=== PATIENT | male | born 1970 | race Caucasian/White ===

== ENCOUNTER 2017-04-02 10:57 | Inpatient (IN) | payer OTHER, SELFPAY ==
[~2017-04-02] VITALS: Ht 170.2 cm; Wt 78.0 kg
[2017-04-02] MEDS ORDERED: SODIUM CHLORIDE 0.9% 1,000 ML IV ONE ×2 (11:34→14:20)
[2017-04-02] MEDS ORDERED: ONDANSETRON 2MG/ML, 2ML IVPush ONE (12:00)
[2017-04-02] MEDS ORDERED: SODIUM CHLORIDE 0.9% 1,000ML IVBOLUS ONE ×3 (12:00→15:30)
[2017-04-02] MEDS ORDERED: SODIUM CHLORIDE FLUSH 10ML SYR IVF ONE (12:00)
[2017-04-02] MEDS ORDERED: PLEASE ENTER ALLERGIES MC SCH (12:00)
[2017-04-02] MEDS ORDERED: HYDROmorphone 1 MG/ML, 1ML IVPush PRN ×2 (12:00→14:30)
[2017-04-02] MEDS ORDERED: PIPERACILLIN/TAZO/PMX 3.375GM 50 ML IVPB ONE (12:00)
[2017-04-02] MEDS ORDERED: PIPERACILLIN/TAZO/PMX 3.375GM 50 ML ONE (12:01)
[2017-04-02] MEDS ORDERED: ONDANSETRON 2MG/ML, 2ML ONE (12:01)
[2017-04-02] MEDS ORDERED: HYDROmorphone 2 MG/ML, 1ML ONE (12:01)
[2017-04-02 12:19] LABS: MEAN CORPUSCULAR HEMOGLOBIN 31.5 pg (27.5-34.5); MEAN CORPUSCULAR HGB CONC 33.9 g/dL (33.2-36.2); MEAN CORPUSCULAR VOLUME 92.7 fL (81-97); MEAN PLATELET VOLUME 7.6 fL (7.4-10.4); PLATELET COUNT 234 x10^3/uL (130-400); RED BLOOD COUNT 3.95 x10^6/uL (4.38-5.82); RED CELL DISTRIBUTION WIDTH 14.4 % (9.4-14.8)
[2017-04-02 12:32] LABS: ALANINE AMINOTRANSFERASE 93 U/L (12-78); ALBUMIN 2.7 g/dL (3.4-5.0); ANION GAP 9 mmol/L (5-15); CHLORIDE 99 mmol/L (98-107); CREATININE 0.96 mg/dL (0.7-1.3)
[2017-04-02 12:34] LABS: ALKALINE PHOSPHATASE 224 U/L (45-117); BILIRUBIN,TOTAL 0.8 mg/dL (0.2-1.0)
[2017-04-02 12:39] LABS: MD YES
[2017-04-02 12:42] LABS: BAND#(MANUAL) 1.77 x10^3/uL; BANDS%(MANUAL) 8 % (0-7); EOS#(MANUAL) 0.22 x10^3/uL (0.0-0.4); EOS% (MANUAL) 1 % (1-7); LYMPH#(MANUAL) 0.44 x10^3/uL (1-3.4); LYMPHS% (MANUAL) 2 % (22-44); MONOS#(MANUAL) 1.11 x10^3/uL (0.3-2.7); MONOS% (MANUAL) 5 % (2-9); SEG#(MANUAL) 18.56 x10^3/uL (1.8-6.8); SEGS% (MANUAL) 84 % (42-75)
[2017-04-02 12:43] LABS: <PLATELET ESTIMATE> ADEQUATE; <PLT MORPHOLOGY> NORMAL PLT MORPH; <RBC MORPHOLOGY> NORMAL
[2017-04-02] MEDS ORDERED: OMNIPAQUE 350 MG/ML, 100ML BOTTLE ONE (13:19)
[2017-04-02 14:29] LABS: MICROSCOPIC INDICATED
[2017-04-02] MEDS ORDERED: SODIUM CHLORIDE FLUSH 10ML SYR IVF PRN (14:30)
[2017-04-02] MEDS ORDERED: ONDANSETRON 2MG/ML, 2ML IVPush PRN ×2 (14:30→15:00)
[2017-04-02 14:41] LABS: CULTURE INDICATED? NO
[2017-04-02] MEDS ORDERED: ACETAMINOPHEN 325 MG TABLET PO PRN (15:00)
[2017-04-02] MEDS ORDERED: LABETALOL 5MG/ML, 20ML IVPush PRN (15:00)
[2017-04-02] MEDS ORDERED: VANCOMYCIN PER PHARMACY MC PRN (15:00)
[2017-04-02] MEDS ORDERED: DOCUSATE 100 MG CAPSULE PO PRN (15:00)
[2017-04-02] MEDS ORDERED: ENALAPRILAT 1.25 MG/ML, 2ML IVPush PRN (15:00)
[2017-04-02] MEDS ORDERED: BISACODYL 10 MG SUPP PR PRN (15:00)
[2017-04-02] MEDS ORDERED: POLYETHYLENE GLYCOL 17 GM PACKET PO PRN (15:00)
[2017-04-02 15:13] VITALS: BP 114/71
[2017-04-02] MEDS ORDERED: PHARMACOKINETIC CONSULTATION MC ONE (15:30)
[2017-04-02] MEDS ORDERED: PHARMACOKINETIC MONITORING MC PRN (15:30)
[2017-04-02] MEDS: HYDROmorphone 2 MG/ML, 1ML IVPush PRN (16:30)
[2017-04-02] MEDS: AMPICILLIN/SULBACTAM 3 GM in SODIUM CHLORIDE 0.9% 100 ML IV SCH ×2 (16:34→22:34)
[2017-04-02] MEDS: ENOXAPARIN 40 MG/0.4 ML SQ SCH (16:43)
[2017-04-02] MEDS: SODIUM CHLORIDE 0.9% 1,000 ML IV SCH ×2 (16:44→22:34)
[2017-04-02] MEDS: VANCOMYCIN 1,500 MG in SODIUM CHLORIDE 0.9% 250 ML IV SCH (18:04)
[2017-04-02 19:16] VITALS: BP 108/66
[2017-04-02] MEDS: HYDROcodone/APAP 5/325 TABLET PO PRN (20:49)
[2017-04-02] MEDS: TEMAZEPAM 15 MG CAPSULE PO PRN (22:42)
[2017-04-03] MEDS: AMPICILLIN/SULBACTAM 3 GM in SODIUM CHLORIDE 0.9% 100 ML IV SCH ×4 (04:57→23:18)
[2017-04-03 04:59] VITALS: BP 108/48
[2017-04-03] MEDS: HYDROcodone/APAP 5/325 TABLET PO PRN ×5 (05:11→23:23)
[2017-04-03 06:48] VITALS: BP 112/68
[2017-04-03 08:52] LABS: MEAN CORPUSCULAR HEMOGLOBIN 31.3 pg (27.5-34.5); MEAN CORPUSCULAR VOLUME 92.2 fL (81-97); MEAN PLATELET VOLUME 7.4 fL (7.4-10.4); PLATELET COUNT 198 x10^3/uL (130-400); RED BLOOD COUNT 3.56 x10^6/uL (4.38-5.82); RED CELL DISTRIBUTION WIDTH 14.6 % (9.4-14.8)
[2017-04-03 08:57] LABS: ALANINE AMINOTRANSFERASE 86 U/L (12-78); ALBUMIN 2.2 g/dL (3.4-5.0); ANION GAP 9 mmol/L (5-15); CHLORIDE 102 mmol/L (98-107); CREATININE 0.67 mg/dL (0.7-1.3)
[2017-04-03 08:59] LABS: ALKALINE PHOSPHATASE 183 U/L (45-117); BILIRUBIN,TOTAL 0.6 mg/dL (0.2-1.0); TOTAL PROTEIN 6.8 g/dL (6.4-8.2)
[2017-04-03 09:46] LABS: HCT (SEDRATE) 32.8 % (39.2-51.8)
[2017-04-03 09:49] LABS: MD YES
[2017-04-03 09:50] LABS: BAND#(MANUAL) 0.99 x10^3/uL; BANDS%(MANUAL) 7 % (0-7); LYMPH#(MANUAL) 1.27 x10^3/uL (1-3.4); LYMPHS% (MANUAL) 9 % (22-44); MONOS#(MANUAL) 1.27 x10^3/uL (0.3-2.7); MONOS% (MANUAL) 9 % (2-9); SEG#(MANUAL) 10.58 x10^3/uL (1.8-6.8); SEGS% (MANUAL) 75 % (42-75)
[2017-04-03 09:51] LABS: <PLATELET ESTIMATE> ADEQUATE; <PLT MORPHOLOGY> NORMAL PLT MORPH; <RBC MORPHOLOGY> NORMAL
[2017-04-03] MEDS: SODIUM CHLORIDE 0.9% 1,000 ML IV SCH ×2 (10:34→23:18)
[2017-04-03] MEDS: VANCOMYCIN 1,500 MG in SODIUM CHLORIDE 0.9% 250 ML IV SCH (11:57)
[2017-04-03 14:21] VITALS: BP 113/75
[2017-04-03] MEDS: ENOXAPARIN 40 MG/0.4 ML SQ SCH (16:32)
[2017-04-03] MEDS: POTASSIUM CHLORIDE 20 MEQ TAB.ER.PRT PO SCH (16:33)
[2017-04-03 19:08] VITALS: BP 125/78
[2017-04-03] MEDS: TEMAZEPAM 15 MG CAPSULE PO PRN (23:18)
[2017-04-04 02:44] VITALS: BP 111/68
[2017-04-04] MEDS: AMPICILLIN/SULBACTAM 3 GM in SODIUM CHLORIDE 0.9% 100 ML IV SCH ×4 (05:16→23:33)
[2017-04-04] MEDS: HYDROcodone/APAP 5/325 TABLET PO PRN ×3 (05:22→23:33)
[2017-04-04 05:38] LABS: BASOPHILS # (AUTO) 0.12 x10^3/uL (0-0.1); BASOPHILS % (AUTO) 1 % (0-1); EOSINOPHILS % (AUTO) 1 % (1-7); LYMPHOCYTES # (AUTO) 1.18 x10^3/uL (1-3.4); LYMPHOCYTES % (AUTO) 8 % (22-44); MD NO; MEAN CORPUSCULAR HEMOGLOBIN 31.5 pg (27.5-34.5); MEAN CORPUSCULAR HGB CONC 33.8 g/dL (33.2-36.2); MEAN CORPUSCULAR VOLUME 93.3 fL (81-97); MEAN PLATELET VOLUME 7.2 fL (7.4-10.4); MONOCYTES # (AUTO) 1.07 x10^3/uL (0.2-0.8); MONOCYTES % (AUTO) 7 % (2-9); NEUTROPHILS # (AUTO) 12.38 x10^3/uL (1.8-6.8); NEUTROPHILS % (AUTO) 83 % (42-75); PLATELET COUNT 285 x10^3/uL (130-400); RED BLOOD COUNT 3.69 x10^6/uL (4.38-5.82); RED CELL DISTRIBUTION WIDTH 14.4 % (9.4-14.8)
[2017-04-04 05:59] LABS: CALCIUM 8.4 mg/dL (8.5-10.1)
[2017-04-04] MEDS: VANCOMYCIN 1,500 MG in SODIUM CHLORIDE 0.9% 250 ML IV SCH (06:18)
[2017-04-04 06:33] LABS: ANION GAP 8 mmol/L (5-15); CHLORIDE 103 mmol/L (98-107); CREATININE 0.71 mg/dL (0.7-1.3); VANCOMYCIN,TROUGH 4.1 mcg/mL (5.0-10.0)
[2017-04-04 07:27] VITALS: BP 135/81
[2017-04-04] MEDS: POTASSIUM CHLORIDE 20 MEQ TAB.ER.PRT PO SCH (08:07)
[2017-04-04 12:25] VITALS: BP 123/74
[2017-04-04] MEDS: SODIUM CHLORIDE 0.9% 1,000 ML IV SCH ×2 (13:34→23:33)
[2017-04-04] MEDS: ENOXAPARIN 40 MG/0.4 ML SQ SCH (16:52)
[2017-04-04] MEDS: HYDROmorphone 2 MG/ML, 1ML IVPush PRN ×2 (16:53→20:35)
[2017-04-04] MEDS: VANCOMYCIN 1,400 MG in SODIUM CHLORIDE 0.9% 250 ML IV SCH (18:22)
[2017-04-04 19:15] VITALS: BP 155/88
[2017-04-05] MEDS: HYDROmorphone 2 MG/ML, 1ML IVPush PRN ×4 (04:07→21:36)
[2017-04-05 04:28] VITALS: BP 144/76
[2017-04-05] MEDS: AMPICILLIN/SULBACTAM 3 GM in SODIUM CHLORIDE 0.9% 100 ML IV SCH ×4 (04:54→23:11)
[2017-04-05 05:08] LABS: CLOSTRIDIUM DIFFICILE ANTIGEN NEGATIVE; CLOSTRIDIUM DIFFICILE TOXIN NEGATIVE (Negative)
[2017-04-05] MEDS: HYDROcodone/APAP 5/325 TABLET PO PRN ×3 (06:16→23:11)
[2017-04-05] MEDS: VANCOMYCIN 1,400 MG in SODIUM CHLORIDE 0.9% 250 ML IV SCH ×2 (06:17→19:24)
[2017-04-05 07:58] VITALS: BP 136/78
[2017-04-05 08:54] LABS: ALANINE AMINOTRANSFERASE 71 U/L (12-78); ALBUMIN 1.9 g/dL (3.4-5.0); ANION GAP 12 mmol/L (5-15); CALCIUM 7.5 mg/dL (8.5-10.1); CHLORIDE 103 mmol/L (98-107); CREATININE 0.58 mg/dL (0.7-1.3)
[2017-04-05 08:56] LABS: ALKALINE PHOSPHATASE 228 U/L (45-117); BILIRUBIN,TOTAL 0.6 mg/dL (0.2-1.0); TOTAL PROTEIN 6.6 g/dL (6.4-8.2)
[2017-04-05 09:18] LABS: MEAN CORPUSCULAR HEMOGLOBIN 31.6 pg (27.5-34.5); MEAN CORPUSCULAR HGB CONC 34.1 g/dL (33.2-36.2); MEAN CORPUSCULAR VOLUME 92.8 fL (81-97); MEAN PLATELET VOLUME 7.5 fL (7.4-10.4); PLATELET COUNT 280 x10^3/uL (130-400); RED BLOOD COUNT 3.38 x10^6/uL (4.38-5.82); RED CELL DISTRIBUTION WIDTH 15.1 % (9.4-14.8)
[2017-04-05] MEDS: SODIUM CHLORIDE 0.9% 1,000 ML IV SCH ×2 (09:36→15:30)
[2017-04-05 09:56] LABS: MD YES
[2017-04-05 09:59] LABS: BAND#(MANUAL) 0.56 x10^3/uL; BANDS%(MANUAL) 4 % (0-7); LYMPH#(MANUAL) 1.13 x10^3/uL (1-3.4); LYMPHS% (MANUAL) 8 % (22-44); MONOS#(MANUAL) 0.85 x10^3/uL (0.3-2.7); MONOS% (MANUAL) 6 % (2-9); SEG#(MANUAL) 11.56 x10^3/uL (1.8-6.8); SEGS% (MANUAL) 82 % (42-75)
[2017-04-05 10:00] LABS: <PLATELET ESTIMATE> ADEQUATE; ANISOCYTOSIS 1+
[2017-04-05 10:01] LABS: <PLT MORPHOLOGY> NORMAL PLT MORPH
[2017-04-05 14:23] VITALS: BP_SYST 121; BP_SYST 130; BP_DIAS 74; BP_DIAS 76
[2017-04-05] MEDS ORDERED: BUPIVACAINE/PF 0.5% ONE (15:07)
[2017-04-05] MEDS ORDERED: EPINEPHRINE 1 MG/ML, 1ML ONE (15:07)
[2017-04-05] MEDS ORDERED: FENTANYL PF 250 MCG/5ML ONE (15:12)
[2017-04-05] MEDS ORDERED: MIDAZOLAM 1 MG/ML, 2ML ONE (15:12)
[2017-04-05] MEDS ORDERED: PROPOFOL 10 MG/ML, 20ML ONE (15:14)
[2017-04-05] MEDS ORDERED: SUCCINYLCHOLINE 20 MG/ML, 10ML ONE (15:14)
[2017-04-05] MEDS ORDERED: ONDANSETRON 2MG/ML, 2ML ONE (15:14)
[2017-04-05] MEDS ORDERED: ACETAMINOPHEN 325 MG TABLET PO PRN (16:00)
[2017-04-05] MEDS ORDERED: LABETALOL 5MG/ML, 20ML IV PRN (16:00)
[2017-04-05] MEDS ORDERED: ONDANSETRON 2MG/ML, 2ML IVPush PRN (16:00)
[2017-04-05] MEDS ORDERED: HYDROmorphone 1 MG/ML, 1ML IV PRN (16:00)
[2017-04-05] MEDS ORDERED: FENTANYL PF 100 MCG/2ML IV PRN (16:00)
[2017-04-05] MEDS ORDERED: PROMETHAZINE 25 MG/ML, 1ML IV PRN (16:00)
[2017-04-05] MEDS ORDERED: ALBUTEROL SULFATE 2.5 MG/3 ML NPPB PRN (16:00)
[2017-04-05] MEDS ORDERED: OXYcodone 5 MG/5 ML ORAL.SOL UDC PO PRN (16:00)
[2017-04-05] MEDS ORDERED: hydrALAzine 20 MG/ML, 1ML IV PRN (16:00)
[2017-04-05] MEDS ORDERED: MEPERIDINE/PF 25MG/0.5ML IVPush PRN (16:00)
[2017-04-05] MEDS ORDERED: MEPERIDINE/PF 50 MG/ML ONE (16:14)
[2017-04-05] MEDS: ENOXAPARIN 40 MG/0.4 ML SQ SCH (16:30)
[2017-04-05] MEDS ORDERED: FENTANYL PF 100 MCG/2ML ONE (17:04)
[2017-04-05] MEDS ORDERED: OXYcodone 5 MG/5 ML ORAL.SOL UDC ONE (17:04)
[2017-04-05 21:15] VITALS: BP 147/84
[2017-04-06 00:02] VITALS: BP 124/67
[2017-04-06] MEDS: SODIUM CHLORIDE 0.9% 1,000 ML IV SCH ×3 (02:05→17:16)
[2017-04-06] MEDS: MORPHINE SULFATE 4 MG/ML, 1ML IV PRN ×2 (02:05→05:09)
[2017-04-06] MEDS: AMPICILLIN/SULBACTAM 3 GM in SODIUM CHLORIDE 0.9% 100 ML IV SCH ×4 (05:03→23:09)
[2017-04-06 05:34] LABS: MEAN CORPUSCULAR HEMOGLOBIN 32.2 pg (27.5-34.5); MEAN CORPUSCULAR HGB CONC 34.5 g/dL (33.2-36.2); MEAN CORPUSCULAR VOLUME 93.3 fL (81-97); MEAN PLATELET VOLUME 7.1 fL (7.4-10.4); PLATELET COUNT 317 x10^3/uL (130-400); RED BLOOD COUNT 3.02 x10^6/uL (4.38-5.82); RED CELL DISTRIBUTION WIDTH 15.1 % (9.4-14.8)
[2017-04-06 05:40] LABS: ALBUMIN 1.7 g/dL (3.4-5.0); ANION GAP 6 mmol/L (5-15); CALCIUM 7.4 mg/dL (8.5-10.1); CHLORIDE 105 mmol/L (98-107)
[2017-04-06 05:44] LABS: ALANINE AMINOTRANSFERASE 76 U/L (12-78); ALKALINE PHOSPHATASE 201 U/L (45-117); BILIRUBIN,TOTAL 0.4 mg/dL (0.2-1.0); CREATININE 0.58 mg/dL (0.7-1.3); TOTAL PROTEIN 6.1 g/dL (6.4-8.2)
[2017-04-06 06:07] LABS: BASOPHILS # (AUTO) 0.02 x10^3/uL (0-0.1); BASOPHILS % (AUTO) 0 % (0-1); EOSINOPHILS # (AUTO) 0.09 x10^3/uL (0-0.4); EOSINOPHILS % (AUTO) 1 % (1-7); LYMPHOCYTES # (AUTO) 1.26 x10^3/uL (1-3.4); LYMPHOCYTES % (AUTO) 10 % (22-44); MD SCAN; MONOCYTES # (AUTO) 0.51 x10^3/uL (0.2-0.8); MONOCYTES % (AUTO) 4 % (2-9); NEUTROPHILS # (AUTO) 10.93 x10^3/uL (1.8-6.8); NEUTROPHILS % (AUTO) 85 % (42-75)
[2017-04-06] MEDS: OXYcodone/APAP 5/325MG TABLET PO PRN ×3 (06:44→15:56)
[2017-04-06] MEDS: VANCOMYCIN 1,400 MG in SODIUM CHLORIDE 0.9% 250 ML IV SCH ×2 (08:05→20:13)
[2017-04-06 08:29] VITALS: BP 134/74
[2017-04-06 13:38] VITALS: BP 121/75
[2017-04-06] MEDS: ENOXAPARIN 40 MG/0.4 ML SQ SCH (17:02)
[2017-04-06 18:53] VITALS: BP 132/83
[2017-04-06] MEDS: HYDROmorphone 2 MG/ML, 1ML IVPush PRN (20:13)
[2017-04-06] MEDS: TEMAZEPAM 15 MG CAPSULE PO PRN (23:12)
[2017-04-07 00:16] VITALS: BP 149/83
[2017-04-07] MEDS: SODIUM CHLORIDE 0.9% 1,000 ML IV SCH ×2 (03:58→15:00)
[2017-04-07] MEDS: OXYcodone/APAP 5/325MG TABLET PO PRN ×5 (04:03→21:19)
[2017-04-07 05:27] LABS: BASOPHILS # (AUTO) 0.02 x10^3/uL (0-0.1); BASOPHILS % (AUTO) 0 % (0-1); EOSINOPHILS % (AUTO) 2 % (1-7); LYMPHOCYTES # (AUTO) 1.85 x10^3/uL (1-3.4); LYMPHOCYTES % (AUTO) 16 % (22-44); MD NO; MEAN CORPUSCULAR HEMOGLOBIN 31.6 pg (27.5-34.5); MEAN PLATELET VOLUME 7.1 fL (7.4-10.4); MONOCYTES # (AUTO) 0.79 x10^3/uL (0.2-0.8); MONOCYTES % (AUTO) 7 % (2-9); NEUTROPHILS # (AUTO) 8.74 x10^3/uL (1.8-6.8); NEUTROPHILS % (AUTO) 75 % (42-75); PLATELET COUNT 358 x10^3/uL (130-400); RED BLOOD COUNT 3.11 x10^6/uL (4.38-5.82)
[2017-04-07] MEDS: AMPICILLIN/SULBACTAM 3 GM in SODIUM CHLORIDE 0.9% 100 ML IV SCH ×2 (05:36→11:10)
[2017-04-07 07:17] VITALS: BP 158/83
[2017-04-07] MEDS: VANCOMYCIN 1,400 MG in SODIUM CHLORIDE 0.9% 250 ML IV SCH (08:02)
[2017-04-07 13:51] VITALS: BP 157/79
[2017-04-07] MEDS: LACTOBACILLUS CHEW TABLET PO SCH ×2 (16:50→21:13)
[2017-04-07] MEDS: AMOXICILLIN/CLAV 875-125MG TABLET PO SCH ×2 (16:50→21:13)
[2017-04-07] MEDS: ENOXAPARIN 40 MG/0.4 ML SQ SCH (16:51)
[2017-04-07 18:49] VITALS: BP_SYST 167; BP_SYST 174; BP_DIAS 94; BP_DIAS 95
[2017-04-07] MEDS: TEMAZEPAM 15 MG CAPSULE PO PRN (21:19)
[2017-04-08 03:18] VITALS: BP 156/97
[2017-04-08] MEDS: HYDROcodone/APAP 5/325 TABLET PO PRN (03:33)
[2017-04-08 08:08] VITALS: BP 139/82
[2017-04-08 08:42] LABS: BASOPHILS # (AUTO) 0.06 x10^3/uL (0-0.1); BASOPHILS % (AUTO) 1 % (0-1); EOSINOPHILS % (AUTO) 2 % (1-7); LYMPHOCYTES # (AUTO) 1.95 x10^3/uL (1-3.4); LYMPHOCYTES % (AUTO) 22 % (22-44); MD NO; MEAN CORPUSCULAR HEMOGLOBIN 31.7 pg (27.5-34.5); MEAN CORPUSCULAR HGB CONC 34.3 g/dL (33.2-36.2); MEAN CORPUSCULAR VOLUME 92.4 fL (81-97); MEAN PLATELET VOLUME 6.7 fL (7.4-10.4); MONOCYTES # (AUTO) 0.47 x10^3/uL (0.2-0.8); MONOCYTES % (AUTO) 5 % (2-9); NEUTROPHILS # (AUTO) 6.43 x10^3/uL (1.8-6.8); NEUTROPHILS % (AUTO) 71 % (42-75); PLATELET COUNT 398 x10^3/uL (130-400); RED BLOOD COUNT 3.24 x10^6/uL (4.38-5.82); RED CELL DISTRIBUTION WIDTH 14.5 % (9.4-14.8)
[2017-04-08] MEDS: OXYcodone/APAP 5/325MG TABLET PO PRN ×3 (08:54→19:58)
[2017-04-08] MEDS ORDERED: FLUCONAZOLE 200 MG TABLET PO SCH (09:00)
[2017-04-08 09:56] LABS: ALANINE AMINOTRANSFERASE 46 U/L (12-78); ALBUMIN 1.9 g/dL (3.4-5.0); ANION GAP 6 mmol/L (5-15); CALCIUM 7.6 mg/dL (8.5-10.1); CHLORIDE 108 mmol/L (98-107); CREATININE 0.63 mg/dL (0.7-1.3)
[2017-04-08 09:58] LABS: ALKALINE PHOSPHATASE 187 U/L (45-117); BILIRUBIN,TOTAL 0.2 mg/dL (0.2-1.0); TOTAL PROTEIN 6.6 g/dL (6.4-8.2)
[2017-04-08] MEDS ORDERED: HYDROcodone/APAP 5/325 TABLET PO PRN (11:00)
[2017-04-08] MEDS: LACTOBACILLUS CHEW TABLET PO SCH ×3 (11:03→19:58)
[2017-04-08] MEDS: DOXYCYCLINE 100MG TABLET PO SCH ×2 (11:03→19:58)
[2017-04-08] MEDS: AMOXICILLIN/CLAV 875-125MG TABLET PO SCH ×2 (11:04→19:58)
[2017-04-08 13:31] VITALS: BP 151/75
[2017-04-08] MEDS: ENOXAPARIN 40 MG/0.4 ML SQ SCH (16:50)
[2017-04-08 19:09] VITALS: BP 137/71
[2017-04-09] MEDS: OXYcodone/APAP 5/325MG TABLET PO PRN ×4 (00:11→20:58)
[2017-04-09] MEDS: TEMAZEPAM 15 MG CAPSULE PO PRN ×2 (00:11→20:59)
[2017-04-09 00:18] VITALS: BP 155/79
[2017-04-09 06:44] VITALS: BP 149/83
[2017-04-09] MEDS ORDERED: POTASSIUM CHLORIDE 40 MEQ in SODIUM CHLORIDE 0.9% 500 ML IV ONE (07:30)
[2017-04-09] MEDS ORDERED: FLUCONAZOLE 200 MG TABLET PO ONE (09:00)
[2017-04-09] MEDS: AMOXICILLIN/CLAV 875-125MG TABLET PO SCH ×2 (09:05→20:59)
[2017-04-09] MEDS: LACTOBACILLUS CHEW TABLET PO SCH ×3 (09:05→20:59)
[2017-04-09] MEDS: DOXYCYCLINE 100MG TABLET PO SCH ×2 (09:06→20:59)
[2017-04-09] MEDS ORDERED: PROMETHAZINE 25 MG/ML, 1ML IM ONE (10:00)
[2017-04-09] MEDS ORDERED: KETOROLAC 30 MG/1 ML IVPush ONE (10:00)
[2017-04-09 13:00] VITALS: BP 146/81
[2017-04-09] MEDS: ENOXAPARIN 40 MG/0.4 ML SQ SCH (17:00)
[2017-04-09 19:24] VITALS: BP 154/88
[2017-04-10] MEDS: OXYcodone/APAP 5/325MG TABLET PO PRN ×2 (02:06→06:18)
[2017-04-10 02:21] VITALS: BP 159/84
[2017-04-10 07:29] VITALS: BP 136/76
[2017-04-10] MEDS: DOXYCYCLINE 100MG TABLET PO SCH (08:26)
[2017-04-10] MEDS: AMOXICILLIN/CLAV 875-125MG TABLET PO SCH (08:26)
[2017-04-10] MEDS: LACTOBACILLUS CHEW TABLET PO SCH (08:26)
[2017-04-10 10:43] LABS: BASOPHILS # (AUTO) 0.17 x10^3/uL (0-0.1); BASOPHILS % (AUTO) 2 % (0-1); EOSINOPHILS # (AUTO) 0.29 x10^3/uL (0-0.4); EOSINOPHILS % (AUTO) 3 % (1-7); LYMPHOCYTES # (AUTO) 1.81 x10^3/uL (1-3.4); LYMPHOCYTES % (AUTO) 18 % (22-44); MD NO; MEAN CORPUSCULAR HEMOGLOBIN 31.3 pg (27.5-34.5); MEAN CORPUSCULAR HGB CONC 33.6 g/dL (33.2-36.2); MEAN CORPUSCULAR VOLUME 92.9 fL (81-97); MEAN PLATELET VOLUME 6.3 fL (7.4-10.4); MONOCYTES # (AUTO) 0.55 x10^3/uL (0.2-0.8); MONOCYTES % (AUTO) 6 % (2-9); NEUTROPHILS # (AUTO) 7.13 x10^3/uL (1.8-6.8); NEUTROPHILS % (AUTO) 72 % (42-75); PLATELET COUNT 447 x10^3/uL (130-400); RED BLOOD COUNT 3.64 x10^6/uL (4.38-5.82); RED CELL DISTRIBUTION WIDTH 14.9 % (9.4-14.8)
[2017-04-10 10:52] LABS: ANION GAP 7 mmol/L (5-15); CHLORIDE 107 mmol/L (98-107); CREATININE 0.67 mg/dL (0.7-1.3)
[2017-04-10] MEDS ORDERED: KETOROLAC 30 MG/1 ML IM/IV SCH (11:00)
[2017-04-10] MEDS ORDERED: PROMETHAZINE 25 MG/ML, 1ML IM ONE (11:00)
[2017-04-10] MEDS ORDERED: AMOX1TAB12 PO (11:04)
[2017-04-10] MEDS ORDERED: ACID1TAB7 PO (11:04)
[2017-04-10] MEDS ORDERED: DOXY100T PO (11:04)
[2017-04-10] MEDS ORDERED: IBUP200T49 PO (11:06)
[2017-04-10] MEDS ORDERED: POTASSIUM CHLORIDE 20 MEQ TAB.ER.PRT ONE (11:22)
[2017-04-10] MEDS ORDERED: POTASSIUM CHLORIDE 20 MEQ TAB.ER.PRT PO SCH (17:00)
== END 2017-04-10 13:05 | disposition home or self-care (01) | DRG 853 ==
LOC: ED 12:34 → EDIP 14:20 → 3NE 15:03 → DCLOUNGE 04-10 12:52
PROVIDERS: ADMIT Hospitalist; ATTEND Hospitalist
PROC: 0J9B0ZZ Drainage of Perineum Subcutaneous Tissue and Fascia, Open Approach (ICD-10-PCS; principal; 2017-04-05 15:00)
DX: A41.9 Sepsis, unspecified organism (principal); E43 Unspecified severe protein-calorie malnutrition; J18.9 Pneumonia, unspecified organism; E87.1 Hypo-osmolality and hyponatremia; K61.3 Ischiorectal abscess; L03.317 Cellulitis of buttock; D64.9 Anemia, unspecified; Z68.26 Body mass index [BMI] 26.0-26.9, adult; E87.6 Hypokalemia; I10 Essential (primary) hypertension; K76.0 Fatty (change of) liver, not elsewhere classified; N20.0 Calculus of kidney; Z79.899 Other long term (current) drug therapy; Z82.49 Family history of ischemic heart disease and other diseases of the circulatory system; Z87.442 Personal history of urinary calculi
CPT/HCPCS: 36415; 71045; 74177; 80048; 80053; 80202; 81001; 83605; 83735; 84145; 85025; 85651; 87040; 87070; 87075; 87106; 87205; 87324; 96365; 96375; J0171; J0295; J1170; J1650; J1885; J2250; J2405; J2543; J2550; J2704; J3010; J3370; J3480; J3490; Q9967; J0330; J7030; J7040; J7050

== ENCOUNTER → 2019-10-03 | Outpatient (CLI) | payer MEDICAID ==
[~2019-10-03] MED LIST: ACET-1600 PO; ACID1TAB7 PO; AMOX1TAB12 PO; CETI10CA PO; DIPH25CA61 PO; DOXY100T PO; FLUO40CA2 PO; IBUP200T49 PO; OMEP20TA62 PO
[2019-10-03 14:43] LABS: BASOPHILS # (AUTO) 0.05 x10^3/uL (0-0.1); BASOPHILS % (AUTO) 1 % (0-1); EOSINOPHILS # (AUTO) 0.14 x10^3/uL (0-0.4); EOSINOPHILS % (AUTO) 2 % (1-7); LYMPHOCYTES # (AUTO) 1.67 x10^3/uL (1-3.4); LYMPHOCYTES % (AUTO) 24 % (22-44); MD NO; MEAN CORPUSCULAR HEMOGLOBIN 31.8 pg (27.5-34.5); MEAN CORPUSCULAR HGB CONC 33.8 g/dL (33.2-36.2); MEAN CORPUSCULAR VOLUME 94.1 fL (81-97); MEAN PLATELET VOLUME 7.5 fL (7.4-10.4); MONOCYTES # (AUTO) 0.48 x10^3/uL (0.2-0.8); MONOCYTES % (AUTO) 7 % (2-9); NEUTROPHILS # (AUTO) 4.55 x10^3/uL (1.8-6.8); NEUTROPHILS % (AUTO) 66 % (42-75); PLATELET COUNT 222 x10^3/uL (130-400); RED CELL DISTRIBUTION WIDTH 14.2 % (9.4-14.8)
[2019-10-03 14:49] LABS: INTERNATIONAL NORMALIZED RATIO 0.9 (0.93-1.1); PROTHROMBIN TIME 9.5 Seconds (9.6-11.5)
[2019-10-03 14:50] LABS: CALCIUM 8.9 mg/dL (8.5-10.1); CREATININE 0.86 mg/dL (0.7-1.3)
[2019-10-03 15:00] LABS: MICROSCOPIC AUTO
[2019-10-03 15:28] LABS: ANION GAP 5 mmol/L (5-15); CHLORIDE 106 mmol/L (98-107)
== END | disposition home or self-care (01) ==
LOC: STAR 13:49
PROVIDERS: ATTEND Urology
DX: Z01.818 Encounter for other preprocedural examination (principal); N20.0 Calculus of kidney
CPT/HCPCS: 36415; 80048; 81001; 85025; 85610; 87086

== ENCOUNTER 2019-10-08 07:11 | Day surgery (SDC) | payer MEDICAID ==
[~2019-10-08] VITALS: Ht 170.2 cm; Wt 72.4 kg
[2019-10-08] MEDS ORDERED: LACTATED RINGERS 1,000 ML IV SCH (07:37)
[2019-10-08 07:56] VITALS: BP 131/85
[2019-10-08] MEDS ORDERED: LABETALOL 5MG/ML, 20ML IV PRN (08:00)
[2019-10-08] MEDS ORDERED: hydrALAzine 20 MG/ML, 1ML IV PRN (08:00)
[2019-10-08] MEDS ORDERED: FENTANYL PF 100 MCG/2ML IV PRN (08:00)
[2019-10-08] MEDS ORDERED: ONDANSETRON 2MG/ML, 2ML IVPush PRN (08:00)
[2019-10-08] MEDS ORDERED: CHLORHEXIDINE 15 ML UDC MM ONE (08:00)
[2019-10-08] MEDS ORDERED: OXYcodone 5 MG/5 ML ORAL.SOL UDC PO PRN (08:00)
[2019-10-08] MEDS ORDERED: PROMETHAZINE 25 MG/ML, 1ML IVPush PRN (08:00)
[2019-10-08] MEDS ORDERED: HYDROmorphone 1 MG/ML, 1ML INJ IVPush PRN (08:00)
[2019-10-08] MEDS ORDERED: ACETAMINOPHEN 325 MG TABLET PO PRN (08:00)
[2019-10-08] MEDS ORDERED: MEPERIDINE/PF 25MG/0.5ML IVPush PRN (08:00)
[2019-10-08] MEDS ORDERED: MIDAZOLAM 1 MG/ML, 2ML ONE (08:04)
[2019-10-08] MEDS ORDERED: FENTANYL PF 250 MCG/5ML ONE (08:04)
[2019-10-08] MEDS ORDERED: CEFAZOLIN 1,000 MG ONE (09:00)
[2019-10-08] MEDS ORDERED: PROPOFOL 10 MG/ML, 20ML ONE (09:18)
[2019-10-08] MEDS ORDERED: DEXAMETHASONE 4 MG/ML, 1ML ONE ×2 (09:18)
[2019-10-08] MEDS ORDERED: ONDANSETRON 2MG/ML, 2ML ONE (09:18)
[2019-10-08] MEDS ORDERED: HYDROcodone/APAP 5/325 TABLET PO PRN (12:00)
[2019-10-08] MEDS ORDERED: HYDROcodone/APAP 5/325 TABLET ONE (12:02)
== END 2019-10-08 12:25 | disposition home or self-care (01) ==
LOC: OUT 07:11
PROVIDERS: ATTEND Urology
DX: N20.0 Calculus of kidney (principal); Z88.8 Allergy status to other drugs, medicaments and biological substances; Z79.899 Other long term (current) drug therapy; Z87.891 Personal history of nicotine dependence; Z72.89 Other problems related to lifestyle; Z80.0 Family history of malignant neoplasm of digestive organs; Z80.51 Family history of malignant neoplasm of kidney
CPT/HCPCS: 50590; J0690; J1100; J2250; J2405; J2704; J3010; J7120; 36415; 87635